=== PATIENT | male | born 1960 | race African-American/Black ===

== ENCOUNTER 2018-09-04 09:36 | Emergency (ER) | payer MEDICAID ==
[~2018-09-04] VITALS: Ht 185.4 cm; Wt 95.3 kg
[~2018-09-04 09:36] MED LIST: ACETIC ACID15 ML RIGHT EAR; CEPHALEXIN500 MG ORAL; CORTISONE14 GM TP; HYDROXYZINE HCL50 M1 PO; QUETIAPINE FUMA25 MG ORAL; [UNRECOGNIZED DRUG - REMARK]
--- NOTE | 2018-09-04 09:45 | NUR ---
ED Nurse Note: Pt accidentally got his L elbow hit by the door on Thursday08/30/18. Pain 10/10 regina. Swelling noted non-pitting. AOx4, VSS. Will cont to monitor.
[2018-09-04 09:46] VITALS: BP 141/79
--- NOTE | 2018-09-04 10:02 | Emergency Room Report ---
History of Present Illness General Chief Complaint: Upper Extremity Injury Source: Medical Record Present Illness HPI 57-year-old male presents with left elbow pain after bumping his elbow against a door 5 days prior to arrival, he denies any fevers or chills he denies any pain with passive motion, he does endorse some pain with movement sharp in nature aggravated with movement alleviated with rest, he states that his elbow swelled up, he denies any redness to it, no fever or chills, no abdominal pain, he was concerned because it swelled. He says there is a ball at the edge of his elbow. No other complaints Allergies: Coded Allergies: No Known Allergies (Unverified , 10/03/15) Patient History Past Medical History: see triage record Social History: Reports: smoking, alcohol use Reviewed Nursing Documentation: PMH: Agreed; PSxH: Agreed Nursing Documentation-PMH Past Medical History: No History, Except For Hx Hypertension: Yes Review of Systems All Other Systems: negative except mentioned in HPI Physical Exam Vital Signs Date Time Temp Pulse Resp B/P (MAP) Pulse Ox O2 Delivery O2 Flow Rate FiO2 09/04/18 09:40 98.1 82 18 142/87 (105) 96 Room Air Sp02 EP Interpretation: reviewed, normal General Appearance: well appearing, no apparent distress, alert Head: normocephalic, atraumatic Eyes: bilateral eye PERRL, bilateral eye EOMI ENT: uvula midline, moist mucus membranes Neck: supple, thyroid normal, supple/symm/no masses Respiratory: lungs clear, no respiratory distress, no retraction, no accessory muscle use Cardiovascular #1: normal peripheral pulses, regular rate, rhythm, no edema, no gallop, no murmur Gastrointestinal: non tender, soft, no guarding, no rebound Musculoskeletal: other - : Swelling around the olecranon, no redness, no erythema, no pain with passive range of motion of the elbow flexion extension 5 out of 5 strength, 2+ radial pulses, no erythema, no evidence of infection, Neurologic: alert, oriented x3 Psychiatric: mood/affect normal Skin: no rash, warm/dry Medical Decision Making Diagnostic Impression: Primary Impression: Olecranon bursitis of left elbow ER Course Differential includes olecranon bursitis versus septic arthritis, patient with no redness, swelling of the olecranon likely consistent with an olecranon bursitis, he states that the elbow swelling has improved significantly no fever or chills, no erythema, range of motion intact, low suspicion for septic arthritis, disposition home with return precautions, Last Vital Signs Date Time Temp Pulse Resp B/P (MAP) Pulse Ox O2 Delivery O2 Flow Rate FiO2 09/04/18 09:46 98.1 85 19 141/79 96 Room Air Disposition: HOME, SELF-CARE Condition: Stable Referrals: [facility] ([facility] Patient Instructions: Elbow Bursitis, [id number], Olecranon Bursitis With Rehab-[facility] Additional Instructions: The patient was provided with discharge instructions, notified to follow-up with a primary care doctor and or specialist in the next 24-48 hours, and to return to the ED if they have worsening of their symptoms. Please note that this report is being documented using alphacityguides technology. This can lead to erroneous entry secondary to incorrect interpretation by the dictating instrument. Rick oCnde M.D. Sep 04, 2018 10:02
[2018-09-04 10:07] VITALS: BP 141/79
[2018-09-04] MEDS ORDERED: NAPROXEN250 MG ORAL (10:07)
--- NOTE | 2018-09-04 10:07 | NUR ---
ER DISCHARGE NOTE: Patient is cleared to be discharged per ERMD, pt is aox4, on room air, with stable vital signs. pt was given dc and prescription instructions, pt was able to verbalize understanding, pt id band removed. pt is able to ambulate with steady gait. pt took all belongings.
== END 2018-09-04 10:07 | disposition home or self-care (01) ==
LOC: EMR 09:54
DX: M70.22 Olecranon bursitis, left elbow (principal); F17.200 Nicotine dependence, unspecified, uncomplicated; I10 Essential (primary) hypertension
CPT/HCPCS: 99281

== ENCOUNTER 2018-09-29 10:59 | Emergency (ER) | payer MEDICAID ==
[~2018-09-29] VITALS: Ht 185.4 cm; Wt 99.8 kg
[~2018-09-29 10:59] MED LIST changes: +NAPROXEN250 MG ORAL
--- NOTE | 2018-09-29 11:22 | Emergency Room Report ---
History of Present Illness General Chief Complaint: Upper Extremity Injury Source: Patient Present Illness HPI Patient hit his left elbow 2 weeks ago. The last few days there is been swelling and increased pain with warmth with a bump on the elbow. Denies any fevers or chills. The patient is up-to-date on his tetanus vaccination. He has not taken anything for pain at this time. Is right-handed. No numbness. Rates the pain 7/10, burning and aching. History of lymphoma and hypertension. Allergies: Coded Allergies: No Known Allergies (Unverified , 10/03/15) Patient History Past Medical History: see triage record Past Surgical History: other - Removal of lymphoma Social History: Reports: smoking Social History Narrative With significant other Reviewed Nursing Documentation: PMH: Agreed; PSxH: Agreed Nursing Documentation-PMH Past Medical History: No History, Except For Hx Hypertension: Yes Review of Systems Constitutional: Reports: see HPI Musculoskeletal: Reports: see HPI Skin: Reports: see HPI Neurological: Reports: see HPI Hematologic/Lymphatic: Reports: easy bleeding Physical Exam Vital Signs Date Time Temp Pulse Resp B/P (MAP) Pulse Ox O2 Delivery O2 Flow Rate FiO2 09/29/18 11:05 98.6 105 20 137/81 (99) 94 Room Air Sp02 EP Interpretation: reviewed, normal General Appearance: well appearing, no apparent distress, GCS 15 Head: normocephalic, atraumatic Eyes: bilateral eye normal inspection, bilateral eye PERRL ENT: moist mucus membranes Neck: full range of motion Respiratory: speaking full sentences Cardiovascular #1: regular rate, rhythm Cardiovascular #2: 2+ radial (L) Gastrointestinal: normal inspection Musculoskeletal: normal range of motion, swelling - Olecranon bursa, tenderness - Olecranon bursa Neurologic: alert, oriented x3, distal neuro normal Psychiatric: mood/affect normal Skin: other - Slight erythema and warmth olecranon bursa Medical Decision Making Diagnostic Impression: Primary Impression: Olecranon bursitis, left elbow ER Course Bacitracin is applied to the skin. Patient presents post trauma to his left elbow 2 weeks ago with swelling warmth redness and tenderness to left olecranon bursa. Differential includes fracture, contusion, olecranon bursitis, cellulitis amongst others. X-rays are indicated. Patient is treated with analgesia and antibiotics. An Gavin wrap is applied to compress the olecranon bursa. X-ray without fracture but soft tissue swelling. Exam is consistent with olecranon bursitis with possible infection. Is applied by nurse, tension excellent with some improvement in symptoms. Distal neurovascular exam normal as checked by me. Discussed the need to control the infection before possibility of draining the olecranon bursa. Patient understands treatment plan. Patient stable for outpatient observation and treatment. Other X-Ray Diagnostic Results Other X-Ray Diagnostic Results : X-Ray ordered: left elbow # of Views/Limited Vs Complete: 3 View Indication: Other Interpretation: no dislocation, no fractures, other - Soft tissue swelling Impression: Other Electronically Signed by: Electronically signed by Federico Campuzano MD Last Vital Signs Date Time Temp Pulse Resp B/P (MAP) Pulse Ox O2 Delivery O2 Flow Rate FiO2 09/29/18 13:12 98.6 20 135/80 95 Room Air 09/29/18 13:04 98 Status: improved Disposition: HOME, SELF-CARE Condition: Improved Scripts Hydrocodone Bit/Acetaminophen 5-325* (NORCO 5-325*) 1 Each Tablet 1 TAB ORAL Q6H PRN for For Pain, #10 TAB 0 Refills Prov: Federico Campuzano MD 09/29/18 Ibuprofen* (MOTRIN*) 600 Mg Tablet 600 MG ORAL Q6H PRN for For Pain, #20 TAB 0 Refills Prov: Federico Campuzano MD 09/29/18 Cephalexin* (KEFLEX*) 500 Mg Capsule 500 MG ORAL EVERY 6 HOURS, #28 CAP Prov: Federico Campuzano MD 09/29/18 Federico Campuzano MD Sep 29, 2018 11:22
[2018-09-29] MEDS ORDERED: Cephalexin 500mg cap ORAL ONE (11:30)
[2018-09-29] MEDS ORDERED: HYDROcodone/Acetamin 5/325 tab PO ONE (11:30)
[2018-09-29] MEDS ORDERED: Neosporin Oint Ud Pkt TOP ONE (11:30)
--- NOTE | 2018-09-29 11:58 | Diagnostic Imaging Report ---
Indication: Left elbow pain Findings: 3 views of the left elbow were obtained. There is soft tissue swelling in the posterior part of the distal upper arm and elbow. There is no fracture or malalignment identified. There is no joint effusion identified. IMPRESSION: Soft tissue swelling
[2018-09-29] MEDS ORDERED: IBUPROFEN600 MG ORAL (12:38)
[2018-09-29] MEDS ORDERED: NORCO 5-325 TA1 EACH ORAL (12:38)
[2018-09-29] MEDS ORDERED: CEPHALEXIN500 MG ORAL (12:38)
[2018-09-29 13:04] VITALS: BP 135/80
--- NOTE | 2018-09-29 13:10 | NUR ---
ED Nurse Note: ermd eval done imaging done pt medicated NAD.
--- NOTE | 2018-09-29 13:11 | NUR ---
ER DISCHARGE NOTE: Patient is cleared to be discharged per ERMD, pt is aox4, on room air, with stable vital signs. pt was given dc and prescription instructions, pt was able to verbalize understanding, pt id band and removed without complications. pt is able to ambulate with steady gait. pt took all belongings. Gavin wrap applied to elbow per ermd verbal order.
[2018-09-29 13:12] VITALS: BP 135/80
== END 2018-09-29 12:55 | disposition home or self-care (01) ==
LOC: EMR 11:51
DX: M70.22 Olecranon bursitis, left elbow (principal); Y93.9 Activity, unspecified; I10 Essential (primary) hypertension; Z87.891 Personal history of nicotine dependence; Z85.72 Personal history of non-Hodgkin lymphomas
CPT/HCPCS: 99283

== ENCOUNTER 2019-08-14 16:49 | Emergency (ER) | payer MEDICAID ==
[~2019-08-14] VITALS: Ht 185.4 cm; Wt 108.9 kg
[~2019-08-14 16:49] MED LIST changes: +BENADRYL ALLERG25 M1 PO; +BENADRYL25 MG ORAL; +CALAMINE LOTIO177 ML TP; +IBUPROFEN600 MG ORAL; +MEDROL DOSEPAK4 MG ORAL; +MUPIROCIN22 GM TOPIC; +NIZORAL 2% C1 APPLIC TOPIC; +NORCO 5-325 TA1 EACH ORAL
[2019-08-14 17:12] VITALS: BP 122/77
--- NOTE | 2019-08-14 17:12 | NUR ---
ED Nurse Note: Pt ambulated to ed c/o itchiness of hands and inbetween fingers
--- NOTE | 2019-08-14 17:14 | Emergency Room Report ---
History of Present Illness General Chief Complaint: Skin Rash/Abscess Source: Patient Present Illness HPI 58-year-old male with no significant past medical history here complaining of several days extremely pruritic rash in both hands in between his webspaces now spreading further up and webspaces of both feet. Reports that the pruritus is worse at night. Denies any pain. Denies any fever and chills. Denies coming contact with any allergens. Has not taken medication for symptom relief. Denies chest pain, shortness of breath, headache and dizziness. Allergies: Coded Allergies: No Known Allergies (Unverified , 10/03/15) COVID-19 Screening Contact w/high risk pt: No Recent Travel to affected area: No Experienced COVID-19 symptoms?: No COVID-19 Testing performed DOOR SLINGER: Yes COVID-19 Screening: Negative COVID-19 COVID-19 Testing Source: snf Patient History Past Medical History: see triage record Past Surgical History: none Pertinent Family History: none Immunizations: UTD Reviewed Nursing Documentation: PMH: Agreed; PSxH: Agreed Nursing Documentation-PMH Past Medical History: No History, Except For Hx Hypertension: Yes Review of Systems All Other Systems: negative except mentioned in HPI Physical Exam Vital Signs Date Time Temp Pulse Resp B/P (MAP) Pulse Ox O2 Delivery O2 Flow Rate FiO2 08/14/19 17:03 98.2 81 20 122/77 (92) 98 Room Air Sp02 EP Interpretation: reviewed, normal General Appearance: well appearing, no apparent distress Head: normocephalic, atraumatic Eyes: bilateral eye normal inspection ENT: hearing grossly normal, normal voice Neck: supple Respiratory: chest non-tender, lungs clear, no rhonchi, no respiratory distress , speaking full sentences Cardiovascular #1: normal inspection, normal peripheral pulses, regular rate, rhythm, no edema Cardiovascular #2: 2+ radial (R), 2+ radial (L) Gastrointestinal: non tender, soft Rectal: deferred Genitourinary: no CVA tenderness Musculoskeletal: gait/station normal, no calf tenderness Neurologic: alert, normal gait Skin: rash - Scabies noted both hands from webspaces, with overlying eczema Lymphatic: no adenopathy Medical Decision Making PA Attestation All my diagnosis and treatment plans were reviewed ad discussed with my supervising physician Dr. Stokes Diagnostic Impression: Primary Impression: Scabies ER Course 58-year-old male with no significant past medical history here complaining of several days extremely pruritic rash in both hands in between his webspaces now spreading further up and webspaces of both feet. Reports that the pruritus is worse at night. Denies any pain. Denies any fever and chills. Denies coming contact with any allergens. Has not taken medication for symptom relief. Denies chest pain, shortness of breath, headache and dizziness. Ddx considered but are not limited to: Eczema, scabies, lice, Vital signs: are WNL, pt. is afebrile H&PE are most consistent with: Scabies, eczema ORDERS: Permethrin, triamcinolone cream, Benadryl ED INTERVENTIONS: None required at this time. DISCHARGE: At this time pt. is stable for d/c to home. Will provide printed patient care instructions, and any necessary prescriptions. Care plan and follow up instructions have been discussed with the patient prior to discharge. Patient take medication as directed, follow primary doctor for referral to institutional commodity analyst, wash all bedding and clothes, worsening symptoms return to the emergency room Last Vital Signs Date Time Temp Pulse Resp B/P (MAP) Pulse Ox O2 Delivery O2 Flow Rate FiO2 08/14/19 17:03 98.2 81 20 122/77 (92) 98 Room Air Disposition: HOME, SELF-CARE Condition: Stable Scripts Diphenhydramine HCl (Benadryl) 25 Mg Capsule 25 MG PO TID, #30 CAP Prov: Elle Juárez 08/14/19 Triamcinolone Acetonide (Triamcinolone Acetonide 0.5% Oint*) 15 Gm Oint...g. 15 GM TP NEEDED, #22 GM Prov: Elle Juárez 08/14/19 Permethrin* (ELIMITE*) 60 Gm Cream..g. 1 APPLIC TOPIC ONCE, #60 GM 0 Refills Apply cream from head to toe; leave on for 8-14 hours before washing off with water; may reapply in 1 week if live mites appear. Prov: Elle Juárez 08/14/19 Patient Instructions: Eczema, Scabies, Pediatric Additional Instructions: Take medication as directed, follow-up with your primary care provider for referral to institutional commodity analyst, keep washing all of your clothes and bedding, if worsening symptoms return to the emergency room Elle Juárez Aug 14, 2019 17:14
[2019-08-14] MEDS ORDERED: BENADRYL25 M3 PO (17:16)
[2019-08-14] MEDS ORDERED: PERMETHRIN60 GM TOPIC (17:16)
[2019-08-14] MEDS ORDERED: TRIAMCINOLONE A15 G3 TP (17:16)
[2019-08-14 17:22] VITALS: BP 135/69
--- NOTE | 2019-08-14 17:23 | NUR ---
ER DISCHARGE NOTE: Patient is cleared to be discharged per ERMD, pt is aox4, on room air, with stable vital signs. pt was given dc and prescription instructions, pt was able to verbalize understanding, pt id bandremoved. pt is able to ambulate with steady gait. pt took all belongings.
== END 2019-08-14 17:22 | disposition home or self-care (01) ==
LOC: EMR 17:05
DX: B86 Scabies (principal); I10 Essential (primary) hypertension
CPT/HCPCS: 99282